=== PATIENT | female | born 1965 | race Caucasian/White ===

== ENCOUNTER 2019-08-24 17:17 | Emergency (ER) | payer BC ==
[~2019-08-24] VITALS: Ht 175.3 cm; Wt 70.5 kg
[~2019-08-24 17:17] MED LIST: AMOX1TAB16 PO; CLON1TAB13 PO; CYCL10 PO; HYDR-4061 PO; LEVO50 PO; LITH300T PO; QUET25TA PO
[2019-08-24] MEDS ORDERED: HYDROCODONE/ACETAMINOPHEN 5-325 MG TABLET PO ONE (17:45)
[2019-08-24] MEDS ORDERED: ONDANSETRON HCL 4 MG TABLET PO ONE (17:45)
[2019-08-24 18:56] VITALS: BP 131/78
== END 2019-08-24 19:30 | disposition home or self-care (01) ==
LOC: EMS 17:22
DX: S09.90XA Unspecified injury of head, initial encounter (principal); Z90.49 Acquired absence of other specified parts of digestive tract; Z90.710 Acquired absence of both cervix and uterus; Z88.8 Allergy status to other drugs, medicaments and biological substances; W18.2XXA Fall in (into) shower or empty bathtub, initial encounter; Y93.89 Activity, other specified; Y92.89 Other specified places as the place of occurrence of the external cause; Y99.8 Other external cause status
CPT/HCPCS: 70450; 72125; 99285; Q0162